=== PATIENT | male | born 1975 | race Caucasian/White ===

== ENCOUNTER 2023-09-26 16:55 | Observation (INO) | payer OTHER ==
[~2023-09-26] VITALS: Ht 167.6 cm; Wt 57.8 kg
[2023-09-26] MEDS ORDERED: HUMALOG MI100 UNIT/4 SUB-Q (17:57)
--- OUTSIDE RECORDS SUMMARY | 2023-09-26 19:13 | XMS ---
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 E.D. VISIT COUNT (12 MO.) 7 Meeta Davenport 2 Meeta Betty Davenport - [facility] [address] [place] [address] BARTOLOME - Tim Donato [address] [place] [address] [address] [place]anci[place]anci TOTAL 13 NOTE: Visits indicate total known visits. ED/UCC VISIT TRACKING (12 MO.) 09/26/2023 16:56 MAYLIN Ruvalcaba TYPE: Emergency COMPLAINT: - RT FOOT PAIN 08/04/2023 23:56 [facility] HARPREET Rene TYPE: Emergency DIAGNOSES: 1. Pancreatis? Blood Sugar? 2. Other acute osteomyelitis, left hand 3. Idiopathic acute pancreatitis without necrosis or infection 4. Type 1 diabetes mellitus without complications 07/15/2023 12:34 [facility] COMPLAINT: - WOUND INFECTION (COMPLICATED) DIAGNOSES: 1. Cellulitis of left finger 1. Unspecified open wound of left index finger without damage to nail, initial encounter 2. Other specified soft tissue disorders 2. Unspecified open wound of left index finger without damage to nail, initial encounter 3. Type 2 diabetes mellitus with diabetic polyneuropathy 4. Personal history of nicotine dependence 5. Acquired absence of other toe(s), unspecified side 6. Contact with other powered hand tools and household machinery, initial encounter 7. Activity, other specified 8. Unspecified place in unspecified non-institutional (private) residence as the place of occurrence of the external cause - Cellulitis of left finger - injury to left index finger 06/03/2023 16:01 BARTOLOME Donato TYPE: Emergency [facility]23 19[facility] COMPLAINT: - ABDOMINAL PAIN DIAGNOSES: 1. Nausea with vomiting, unspecified 1. Nausea with vomiting, unspecified 2. Upper abdominal pain, unspecified 2. Upper abdominal pain, unspecified 3. Abdominal tenderness, unspecified site 4. Personal history of nicotine dependence - Unspecified abdominal pain - ABDOMINAL PAIN 04/18/2023 22:21 [facility] GRECIA Rene TYPE: Emergency COMPLAINT: - Emesis DIAGNOSES: - Left lower quadrant pain - vomiting [facility]04[facility]2023 20:[facility] COMPLAINT: - WOUND INFECTION (COMPLICATED) DIAGNOSES: - Primary osteoarthritis, unspecified ankle and foot - Patient states infected toe 03/29/2023 23:51 [facility] TYPE: Emergency COMPLAINT: - TOE PAIN DIAGNOSES: 1. Type 2 diabetes mellitus with other skin complications 1. Type 2 diabetes mellitus with other skin ulcer 2. Local infection of the skin and subcutaneous tissue, unspecified 2. Pain in right toe(s) 3. Type 2 diabetes mellitus with hyperglycemia 4. Tachycardia, unspecified 5. Type 2 diabetes mellitus with diabetic polyneuropathy 6. correction (current) use of insulin 7. Acquired absence of right great toe 8. Personal history of nicotine dependence 9. Personal history of other diseases of the digestive system 10. Personal history of other endocrine, nutritional and metabolic disease - Local infection of the skin and subcutaneous tissue, unspecified - Type 2 diabetes mellitus with other skin complications - TOE INFECTION 03/29/2023 23:51 [facility]: [facility] COMPLAINT: - TOE PAIN DIAGNOSES: - Local infection of the skin and subcutaneous tissue, unspecified - Type 2 diabetes mellitus with other skin complications 02/21/2023 20:55 [facility]: [facility] COMPLAINT: - TOE INJURY MAJOR DIAGNOSES: - Cellulitis of unspecified part of limb 02/21/2023 20:55 [facility] TYPE: Emergency COMPLAINT: - TOE INJURY MAJOR DIAGNOSES: - Cellulitis of unspecified part of limb - FOOT INFECTION 10/23/2022 00:29 [facility] TYPE: Emergency 10/22/2022 20:38 [facility] TYPE: Emergency COMPLAINT: - FOOT PAIN DIAGNOSES: 1. Type 2 diabetes mellitus with foot ulcer 1. Type 2 diabetes mellitus with foot ulcer 2. Non-pressure chronic ulcer of other part of right foot with unspecified severity 2. Non-pressure chronic ulcer of other part of right foot with unspecified severity 3. Type 2 diabetes mellitus with hyperglycemia 4. correction (current) use of insulin 5. Personal history of sudden cardiac arrest 6. Personal history of nicotine dependence 7. Other specified postprocedural states - Local infection of the skin and subcutaneous tissue, unspecified - Type 2 diabetes mellitus with other skin complications - leg/foot pain INPATIENT VISIT TRACKING (12 MO.) 08/04/2023 23:56 [facility] Anju TYPE: Medical Surgical DIAGNOSES: 1. Acute pancreatitis without necrosis or infection, unspecified 1. Pancreatis? Blood Sugar? 2. Other acute osteomyelitis, left hand 2. Pancreatis? Blood Sugar? 3. Idiopathic acute pancreatitis without necrosis or infection 3. Other acute osteomyelitis, left hand 4. Idiopathic acute pancreatitis without necrosis or infection 4. Type 1 diabetes mellitus without complications 5. Type 1 diabetes mellitus without complications 6. Subacute osteomyelitis, left hand 06/03/2023 18:23 [facility] Tim Donato [facility] TYPE: Medical Surgical DIAGNOSES: - Acquired absence of other specified parts of digestive tract - Acquired absence of other specified parts of digestive tract - Acquired absence of right great toe - Acquired absence of right great toe - Acute pancreatitis without necrosis or infection, unspecified - Acute pancreatitis without necrosis or infection, unspecified - Acute pancreatitis without necrosis or infection, unspecified - Acute pancreatitis without necrosis or infection, unspecified - Benign prostatic hyperplasia without lower urinary tract symptoms - Benign prostatic hyperplasia without lower urinary tract symptoms - Cannabis use, unspecified, uncomplicated - Cannabis use, unspecified, uncomplicated - Constipation, unspecified - Constipation, unspecified - Contact with and (suspected) exposure to COVID-19 - Contact with and (suspected) exposure to COVID-19 - Fatty (change of) liver, not elsewhere classified - Fatty (change of) liver, not elsewhere classified - Gastritis, unspecified, without bleeding - Gastritis, unspecified, without bleeding - Gastro-esophageal reflux disease without esophagitis - Gastro-esophageal reflux disease without esophagitis - correction (current) use of insulin - 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 COMPLAINT: - WOUND INFECTION (COMPLICATED) DIAGNOSES: 1. Type 2 diabetes mellitus with foot ulcer 1. Type 2 diabetes mellitus with other specified complication 2. Cellulitis of left lower limb 3. Other acute osteomyelitis, right ankle and foot 4. 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 Type 2 diabetes mellitus with other specified complication 6. Essential (primary) hypertension 7. Pulmonary hypertension, unspecified 8. Obstructive sleep apnea (adult) (pediatric) 9. Type 2 diabetes mellitus with diabetic polyneuropathy 10. Type 2 diabetes mellitus with hyperglycemia 11. Type 2 diabetes mellitus with other skin complications 12. Other streptococcus as the cause of diseases classified elsewhere 13. Streptococcus, group B, as the cause of diseases classified elsewhere 14. Constipation, unspecified 15. Other chronic pain 16. Dorsalgia, unspecified 17. Insomnia, unspecified 18. Nicotine dependence, other tobacco product, uncomplicated 19. Acquired absence of right great toe 20. Allergy status to analgesic agent 21. 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 Procedure and treatment not carried out because of patient's decision for unspecified reasons 23. terminal make up operator (current) use of insulin 24. Family history of other disorder of lipoprotein metabolism and other lipidemia 25. Family history of diabetes mellitus 26. Family history of ischemic heart disease and other diseases of the circulatory system - Other acute osteomyelitis, right ankle and foot - Primary osteoarthritis, unspecified ankle and foot - Subacute osteomyelitis, right ankle and foot 03/29/2023 23:51 [facility] TYPE: Emergency COMPLAINT: - TOE PAIN DIAGNOSES: - Local infection of the skin and subcutaneous tissue, unspecified - Type 2 diabetes mellitus with other skin complications 02/21/2023 20:55 [facility] TYPE: Emergency COMPLAINT: - TOE INJURY MAJOR DIAGNOSES: - Cellulitis of unspecified part of limb 10/23/2022 00:29 [facility] DIAGNOSES: 1. Non-pressure chronic ulcer of other part of right foot with unspecified severity 1. Type 2 diabetes mellitus with foot ulcer 2. 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 Other osteomyelitis, lower leg 4. Contact with and (suspected) exposure to COVID-19 5. Pure hypercholesterolemia, unspecified 6. Essential (primary) hypertension 7. Nicotine dependence, other tobacco product, uncomplicated 8. Type 2 diabetes mellitus with hyperglycemia 9. Type 2 diabetes mellitus with diabetic polyneuropathy 10. Pulmonary hypertension, unspecified 11. Type 2 diabetes mellitus with other specified complication 12. 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 Allergy status to analgesic agent 15. Family history of diabetes mellitus 16. Family history of ischemic heart disease and other diseases of the circulatory system 17. Family history of other disorder of lipoprotein metabolism and other lipidemia - Local infection of the skin and subcutaneous tissue, unspecified - Type 2 diabetes mellitus with other skin complications - Type 2 diabetes mellitus without complications [email or web address]
[2023-09-26] MEDS ORDERED: PIPERACILLIN/TAZOBACTAM 4.5 GM in DEXTROSE 5% 100 ML IV ONE (19:15)
[2023-09-26] MEDS ORDERED: VANCOMYCIN HCL 1,250 MG in DEXTROSE 5% 250 ML IV ONE (19:30)
[2023-09-26 19:41] LABS: HEMOGLOBIN 13.6 g/dL (12.0-18.0); MCHC 32.9 g/dl (30-36)
[2023-09-26 19:43] LABS: BASOPHILS 0.6 % (0-2); EOSINOPHILS 1.5 % (0-6); HEMATOCRIT 41.2 % (35.0-50.0); LYMPHOCYTES 9.2 % (24-44); MCH 27.5 (27-36); MCV 83.6 fl (81-99); MONOCYTES 8.9 % (0-12); NEUTROPHILS 79.8 % (39-80); PLATELET COUNT 311 K/uL (140-440); RBC 4.93 M/ul (4.3-5.7); RDW 15.4 (10.5-15.0)
[2023-09-26] MEDS ORDERED: VANCOMYCIN HCL 1,000 MG/20 ML VIAL ONE (19:47)
[2023-09-26] MEDS ORDERED: PIPERACILLIN/TAZOBACTAM 4.5 GM VIAL ONE (19:48)
[2023-09-26] MEDS ORDERED: VANCOMYCIN HCL 500 MG VIAL ONE (19:48)
[2023-09-26 20:04] LABS: ALBUMIN/GLOBULIN RATIO 0.7 (1.1-2.4); ANION GAP 12.9 (7-21); BUN/CREATININE RATIO 15.87 (6.0-28.6); CALCIUM 8.8 mg/dL (8.5-10.1); CREATININE, SERUM 0.63 mg/dL (0.70-1.30); POTASSIUM 3.9 mmol/L (3.5-5.1); PROTEIN, TOTAL 7.3 g/dL (6.4-8.2)
--- NOTE | 2023-09-26 21:58 | NUR ---
pt TRANSFERRED TO MS FLOOR FROM ED AT THIS TIME, pt STOOD AND TRANSFERRED SELF TO MS BED AT THIS TIME. VS TAKEN AND ADMISSION COMPLETED. 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 pt ORIENTED TO ROOM, POC DISCUSSED. CALL LIGHT IN REACH. AND CHILDREN X2 AT BEDSIDE, PREPARING TO LEAVE FOR THE NIGHT ONCE pt IS SETTLED IN FOR THE EVENING.
--- NOTE | 2023-09-26 22:05 | NUR ---
RECEIVED REPORT FROM SANJEEV ROBERTSON FROM ED.
[2023-09-26 22:09] VITALS: BP 137/85
[2023-09-26] MEDS ORDERED: DEXTROSE 50% 50 ML SYR IV PRN ×2 (22:15)
[2023-09-26] MEDS ORDERED: DEXTROSE 5% 1,000 ML IV PRN (22:15)
[2023-09-26] MEDS ORDERED: GLUCAGON,HUMAN RECOMBINANT 1 MG/ML VIAL SUB-Q PRN (22:15)
[2023-09-26] MEDS ORDERED: IBLOOD GLUCOSE TEST STRIP 1 EA TEST XX PRN (22:15)
--- NOTE | 2023-09-26 22:52 | NUR ---
DR BOWEN IN ROOM TALKING WITH PT JESSICA AND PT ELSA. 2 KIDS IN ROOM, RESTLESS SAYING THEY WERE HUNGRY, SNACKS GIVEN TO KIDS. PT WANTED TEA, GIVEN. DID EAT 100 PERCENT OF SANDWICH BOX GIVEN WHEN PT CAME TO ROOM.
--- NOTE | 2023-09-26 23:32 | NUR ---
PT COOPERATIVE WITH ADMIT QUESTIONAIRE AND ADMIT ASESSMENT. ALERT AND ORIENTED. PLEASANT AND COOPERATIVE. ON ROOM AIR, ULCER R FOOT CRATER LIKE W MOIST CENTER, WAS OPEN TO AIR, GAUZE APPLIEAD AT THIS TIME. PT SEES DR LONGORIA PODIATRY. NUMEROUS SCRATCHES ARMS AND LEGS,. DR BOWEN CAME INTO ROOM AND ASSESSED PT. PTS FAMILY IN ROOM. SNACKS GIVEN TO PT AND FAMILY
--- NOTE | 2023-09-27 00:58 | NUR ---
Awake, playing with phone, deneis c/o pain. denies need for voiding at this time. hot tea given on requests.
[2023-09-27 01:23] VITALS: BP 126/74
--- NOTE | 2023-09-27 01:25 | NUR ---
PROJECT ARCHITECT OBTAINED VITALS AND INTAKE. PT REPORTS NO OUTPUT. PT STATES NO FURTHER NEEDS AT THIS TIME. CALL LIGHT PLACED WITHIN REACH.
[2023-09-27] MEDS ORDERED: PIPERACILLIN/TAZOBACTAM 4.5 GM in DEXTROSE 5% 100 ML IV SCH (02:00)
[2023-09-27] MEDS ORDERED: PIPERACILLIN/TAZOBACTAM 4.5 GM VIAL ONE (02:04)
[2023-09-27 02:25] VITALS: BP 131/85
--- NOTE | 2023-09-27 02:29 | NUR ---
AWAKE, COOPERATIVE WITH SECOND ASSESSMENT AND VITALS, VISITING VIA PHONE. NO C/O PAIN, NO VOOID YET, "ITS NOT TIME, STATED", NO BLADDER DISTENTION NOTED. FLUIDS AT BEDSIDE
--- NOTE | 2023-09-27 04:23 | NUR ---
awake, playing with phone, IV ABX infusing. tolerating liquids well, no c/o pain or n/v. Requesting up to BRP. COMMANDING OFFICER TRAFFIC DIVISION in room
[2023-09-27 04:31] VITALS: BP 150/95
[2023-09-27 05:34] LABS: BASOPHILS 0.8 % (0-2); EOSINOPHILS 2.2 % (0-6); HEMATOCRIT 40.4 % (35.0-50.0); HEMOGLOBIN 13.3 g/dL (12.0-18.0); LYMPHOCYTES 9.7 % (24-44); MCH 27.6 (27-36); MCHC 32.9 g/dl (30-36); MCV 83.9 fl (81-99); MONOCYTES 10.1 % (0-12); NEUTROPHILS 77.2 % (39-80); PLATELET COUNT 312 K/uL (140-440); RBC 4.81 M/ul (4.3-5.7); RDW 15.1 (10.5-15.0)
[2023-09-27 05:46] LABS: ANION GAP 11.4 (7-21); BUN/CREATININE RATIO 10.95 (6.0-28.6); CALCIUM 8.5 mg/dL (8.5-10.1); CREATININE, SERUM 0.73 mg/dL (0.70-1.30); MAGNESIUM 1.9 mg/dL (1.8-2.4); POTASSIUM 3.4 mmol/L (3.5-5.1)
--- NOTE | 2023-09-27 06:22 | NUR ---
UP TO BRP, C/O DRY HEAVING. UP TO BRP, VOIDED, BACK TO BED, 1PA/SBA, IV ABX STILL INFUSING, NO C/O PAIN, DRESSING TO R BOTTOM OF FOOT IN PLACE
--- NOTE | 2023-09-27 06:28 | NUR ---
AUTO TUNE UP MECHANIC OBTAINED PT BLOOD SUGAR. BLOOD SUGAR WAS 213. RN NOTIFIED. PT STATES NO FURTHER NEEDS AT THIS TIME. CALL LIGHT WITHIN REACH.
[2023-09-27] MEDS ORDERED: ondansetron HCL 4 MG/2 ML VIAL IV PRN (06:30)
[2023-09-27] MEDS ORDERED: POTASSIUM CHLORIDE 10 MEQ/100 ML BAG IV SCH ×2 (06:30→09:30)
[2023-09-27] MEDS ORDERED: ACETAMINOPHEN 325 MG TAB PO PRN (06:30)
[2023-09-27] MEDS ORDERED: ondansetron HCL 4 MG/2 ML VIAL ONE (06:31)
--- NOTE | 2023-09-27 06:43 | NUR ---
PT MEDICATED WITH ZOFRAN PER DRY HEAVING, "THIS HAPPENS TO ME EARLY IN AM MOST DAYS". LAYING IN BED PLAYING WITH PHONE, DR BOWEN IN ROOM
[2023-09-27] MEDS ORDERED: INSULIN LISPRO 100 UNIT/ML ML SUB-Q SCH ×2 (08:00→12:00)
[2023-09-27] MEDS ORDERED: IBLOOD GLUCOSE TEST STRIP 1 EA TEST VI SCH (08:00)
--- NOTE | 2023-09-27 08:09 | NUR ---
recieved pt report at 0720. pt is currently on the phone. looked over ulcers and scars with nurse. no other cares at his time call light within reach
[2023-09-27] MEDS ORDERED: DAPTOmycin 500 MG/10 ML VIAL IV SCH (09:00)
[2023-09-27] MEDS ORDERED: ENOXAPARIN SODIUM 40 MG/0.4 ML SYR SUB-Q SCH (09:00)
--- NOTE | 2023-09-27 09:30 | NUR ---
pt states that he only takes 45 units of levemir in the am and evening before bed. also takes 5 units of humalog before meals. dr saravia was made aware of the situation as well as pharmacy. dr saravia says lets follow his home med schedule. pharmacy said we dont have levemir but we have lantus. pt told of the changes that would have to be made to his insulin. pt states thats ok. dr saravia spoke with pt and pt agreed to the changes. pt is currently with imaging getting an mri done.
[2023-09-27 09:37] VITALS: BP 120/83
--- NOTE | 2023-09-27 09:41 | NUR ---
PT RECEIVING NURSING CARE DURING SPIRITUAL CARE ROUNDS. DID NOT INTERRUPT. PROVIDED PRAYER.
--- NOTE | 2023-09-27 09:59 | NUR ---
UR CLINICAL REVIEW: [facility] OBSERVATION CRITERIA [facility] [place] [facility] 09/26/23 @ 2112 ORDER MATCHES STATUS AUTH PENDING, WILL SEND CLINICALS IF REQUESTED PLAN TO DC TO HOME WHEN STABLE 09/28/23
--- NOTE | 2023-09-27 10:06 | NUR ---
med rec complete.
[2023-09-27] MEDS ORDERED: HUMALOG100 UNITS/ IV (10:36)
[2023-09-27] MEDS ORDERED: PRED FORTE5 ML OD (10:39)
[2023-09-27] MEDS ORDERED: PHARMACY RENAL DOSE ADJUSTMENT 1 DOSE MISC PO SCH (12:00)
[2023-09-27] MEDS ORDERED: BACTRIM DS TAB1 EACH PO (12:12)
[2023-09-27] MEDS ORDERED: POTASSIUM CHLORIDE 10 MEQ TABCR PO ONE (12:15)
--- NOTE | 2023-09-27 12:17 | NUR ---
DR BOWEN ASKED TO STOP POTASSIUM IV AND SWITCH TO POTASSIUM 20 MEQ PO. ALSO PHARMACST SAID ZOSYN CAN BE GIVEN IN 30 MINUTES. CONFIRMED WITH [facility] AND ZOSYN IS NOW RUNNING AT 200ML
--- NOTE | 2023-09-27 12:28 | NUR ---
PATIENT TRAVELING FROM [facility]. VERIFIED DEMOGRAPHICS. PHONE NUMBER IS [phone]. ADMITTING NOTIFIED OF CORRECTION NEEDED TO CHART. PATIENT HAS NO DME. REMAINS ABLE TO DRIVE WITHOUT DIFFICULTY. STATES HE HAS CHILDREN HE WILL BE PICKING UP AND RETURNING TO [place] WITH IN APPROXIMATELY 6-8 WEEKS. INFORMED APPOINTMENT WILL BE SCHEDULED WITH DR. LONGORIA FOR FOLLOW-UP PRIOR TO DC FROM FACILITY. VERBALIZES UNDERSTANDING. PCP IS DR. ADILSON TAM AT [facility] IN [place]. FOLLOW-UP APPOINTMENT SCHEDULED. PATIENT DENIES ANY OTHER NEEDS AT THIS TIME.
[2023-09-27] MEDS ORDERED: LEVEMIR100 UNIT/1 SUB-Q (12:45)
[2023-09-27] MEDS ORDERED: VIGAMOX3 ML OD (12:45)
[2023-09-27] MEDS ORDERED: PROBIOTIC1 EAC1 PO (12:46)
[2023-09-27] MEDS ORDERED: PEPCID20 MG PO (12:46)
[2023-09-27] MEDS ORDERED: OMEPRAZOLE40 MG PO (12:46)
--- NOTE | 2023-09-27 12:47 | NUR ---
MED REC COMPLETE
[2023-09-27] MEDS ORDERED: INSULIN GLARGINE-YFGN 100 UNIT/ML ML SUB-Q SCH (21:00)
== END 2023-09-27 13:05 | disposition home or self-care (01) ==
LOC: ED 16:55 → MS 16:57
PROVIDERS: Emergency Medicine; ADMIT Internal Medicine; ATTEND Internal Medicine
DX: E11.621 Type 2 diabetes mellitus with foot ulcer (principal); L97.419 Non-pressure chronic ulcer of right heel and midfoot with unspecified severity; L97.519 Non-pressure chronic ulcer of other part of right foot with unspecified severity; Z79.4 Long term (current) use of insulin
CPT/HCPCS: 36415; 73630; 73723; 80048; 80053; 83605; 83735; 85025; 85651; 86140; 87040; 87070; 87205; A9270; A9577; J0878; J1650; J2405; J2543; J3370; J3480; J7060